=== PATIENT | female | born 1995 | race African-American/Black ===

== ENCOUNTER 2018-06-15 11:35 | Inpatient (IN) | payer OTHER ==
[2018-06-15] MEDS ORDERED: METHYLERGONOVINE 0.2 MG INJ IM (13:00)
[2018-06-15] MEDS ORDERED: MISOPROSTOL 200 MCG TAB PR (13:00)
[2018-06-15] MEDS ORDERED: LIDOCAINE 1% (MPF) 30 ML INJ INJ (13:00)
[2018-06-15] MEDS ORDERED: CARBOPROST 250 MCG INJ IM (13:00)
[2018-06-15] MEDS ORDERED: OXYTOCIN 30 UNITS/LR 500 ML IV ×2 (13:00)
[2018-06-15] MEDS ORDERED: BUTORPHANOL 1 MG INJ IV (13:00)
[2018-06-15 13:35] LABS: ADD MAN DIFF? NO
[2018-06-15 13:44] LABS: WHITE BLOOD COUNT 8.5 10^3/ul (4.8-10.8)
[2018-06-15 13:44] LABS: BASOPHILS % 0.4 % (0.0-2.0); EOSINOPHILS # 0.1 10^3/ul (0.0-0.5); EOSINOPHILS % 1.1 % (0.0-7.0); HEMATOCRIT 37.1 % (37.0-47.0); HEMOGLOBIN 12.7 g/dl (12.0-16.0); LYMPHOCYTES # 2.3 10^3/ul (0.8-2.9); LYMPHOCYTES % 26.9 % (15.0-51.0); MEAN CORPUSCULAR HGB CONC 34.2 g/dl (32.0-37.0); MEAN CORPUSCULAR VOLUME 81.7 fl (82.0-101.0); MEAN PLATELET VOLUME 9.8 fl (7.4-10.4); MONOCYTE # 0.8 10^3/ul (0.3-0.9); MONOCYTES % 9.3 % (0.0-11.0); NEUTROPHIL # 5.3 10^3/ul (1.6-7.5); NEUTROPHILS % 62.1 % (39.0-77.0); PLATELET COUNT 297 10^3/UL (140-415); RED BLOOD COUNT 4.54 10^6/ul (4.20-5.40); RED CELL DISTRIBUTION WIDTH 12.8 % (11.5-14.5)
[2018-06-15 14:03] LABS: INR 0.85; PROTIME 11.7 Sec (11.9-14.9); PT RATIO 0.9
[2018-06-15 14:04] LABS: PARTIAL THROMBOPLASTIN TIME 31.1 Sec (23.0-35.0)
[2018-06-15] MEDS: MISOPROSTOL 50 MCG CAPSULE VAG (16:28)
[2018-06-15 16:36] LABS: AMPHETAMINE/METHAMPHETAMINE Negative (NEGATIVE); BARBITURATES Negative (NEGATIVE); BENZODIAZEPINES Negative (NEGATIVE); CANNABINOIDS Positive (NEGATIVE); COCAINE Negative (NEGATIVE); OPIATES Negative (NEGATIVE)
[2018-06-15] MEDS: LACTATED RINGER'S 1,000 ML IV ×2 (16:36→20:57)
[2018-06-15 18:33] LABS: HEMOGLOBIN A1C 5.3 % (0-5.9)
[2018-06-15 18:41] LABS: GLUCOSE 88 mg/dl (70-220)
[2018-06-15 18:57] LABS: FREE T4 (FREE THYROXINE) 0.98 ng/dl (0.79-2.35)
[2018-06-15 20:31] LABS: RAPID PLASMA REAGIN REACTIVE (NR)
[2018-06-15] MEDS: MISOPROSTOL 100 MCG TAB VAG (21:24)
[2018-06-16] MEDS: MISOPROSTOL 100 MCG TAB VAG ×4 (03:37→16:21)
[2018-06-16] MEDS: LACTATED RINGER'S 1,000 ML IV ×3 (05:48→22:20)
[2018-06-16] MEDS: MISOPROSTOL 200 MCG TAB VAG (20:44)
[2018-06-17] MEDS: MISOPROSTOL 200 MCG TAB VAG (03:33)
[2018-06-17] MEDS: BUTORPHANOL 2 MG INJ IV ×2 (10:41→18:05)
[2018-06-17] MEDS: DINOPROSTONE 20 MG VAG SUPP VAG ×2 (12:29→18:06)
[2018-06-17] MEDS: LACTATED RINGER'S 1,000 ML IV (18:09)
[2018-06-17] MEDS: MISOPROSTOL 200 MCG TAB SL (23:53)
[2018-06-18] MEDS: IBUPROFEN 600 MG TAB PO (00:22)
[2018-06-18] MEDS: LACTATED RINGER'S 1,000 ML IV (00:22)
[2018-06-18] MEDS ORDERED: IBUPROFEN 600 MG TAB PO ×2 (00:30→18:30)
[2018-06-18] MEDS: MISOPROSTOL 200 MCG TAB SL ×2 (03:02→06:15)
[2018-06-18] MEDS: BUTORPHANOL 2 MG INJ IV (03:18)
[2018-06-18] MEDS: OXYTOCIN 30 UNITS/LR 500 ML IV (08:17)
[2018-06-18] MEDS ORDERED: MIDAZOLAM 1 MG/ML 2 ML INJ ×2 (09:14)
[2018-06-18] MEDS ORDERED: CEFAZOLIN 1 GM INJ (09:26)
[2018-06-18] MEDS ORDERED: HYDROmorphONE 1 MG/5 ML IV SYRINGE IV ×2 (09:30)
[2018-06-18] MEDS: OXYCODONE/ASPIRIN (4.88/325) TAB PO (13:54)
[2018-06-18 17:21] LABS: ADD MAN DIFF? NO
[2018-06-18 17:24] LABS: WHITE BLOOD COUNT 10.8 10^3/ul (4.8-10.8)
[2018-06-18 17:24] LABS: BASOPHILS % 0.3 % (0.0-2.0); EOSINOPHILS # 0.1 10^3/ul (0.0-0.5); HEMOGLOBIN 11.3 g/dl (12.0-16.0); LYMPHOCYTES % 28.1 % (15.0-51.0); MEAN CORPUSCULAR HEMOGLOBIN 27.8 pg (29.0-33.0); MEAN CORPUSCULAR HGB CONC 33.2 g/dl (32.0-37.0); MEAN CORPUSCULAR VOLUME 83.7 fl (82.0-101.0); MEAN PLATELET VOLUME 9.3 fl (7.4-10.4); MONOCYTES % 9.1 % (0.0-11.0); NEUTROPHIL # 6.6 10^3/ul (1.6-7.5); NEUTROPHILS % 61.2 % (39.0-77.0); PLATELET COUNT 265 10^3/UL (140-415); RED BLOOD COUNT 4.06 10^6/ul (4.20-5.40); RED CELL DISTRIBUTION WIDTH 12.6 % (11.5-14.5)
[2018-06-18] MEDS ORDERED: OXYTOCIN 30 UNITS/LR 500 ML IV ×2 (18:14→18:30)
[2018-06-18] MEDS ORDERED: DIPHENHYDRAMINE 25 MG CAP PO (18:30)
[2018-06-18] MEDS ORDERED: MISOPROSTOL 200 MCG TAB PR (18:30)
[2018-06-18] MEDS ORDERED: SENNA/DOCUSATE NA (8.6MG/50MG) TAB PO ×2 (18:30→21:00)
[2018-06-18] MEDS ORDERED: NACL 0.9% 3 ML SYG IV (18:30)
[2018-06-18] MEDS ORDERED: OXYCODONE/ASPIRIN (4.88/325) TAB PO (18:30)
[2018-06-18] MEDS ORDERED: METHYLERGONOVINE 0.2 MG INJ IM (18:30)
[2018-06-18] MEDS ORDERED: ZOLPIDEM 5 MG TAB PO (18:30)
[2018-06-18] MEDS ORDERED: DIPHENHYDRAMINE 50 MG INJ IV (18:30)
[2018-06-18] MEDS ORDERED: WITCH HAZEL/GLYCERIN PAD PR (18:30)
[2018-06-18] MEDS ORDERED: ONDANSETRON 4 MG INJ IV (18:30)
[2018-06-18] MEDS ORDERED: CARBOPROST 250 MCG INJ IM (18:30)
[2018-06-19 21:46] LABS: CARDIOLIPIN AB - IGA <11 APL; CARDIOLIPIN AB - IGG <14 GPL; CARDIOLIPIN AB - IGM <12 MPL
[2018-06-20] MEDS ORDERED: DIPHTH/TET/ACEL PERTUSS (ADULT) 0.5 ML VIAL IM* (09:00)
[2018-06-21 17:31] LABS: FLUORESCENT TREPONEMAL AB NON-REACTIVE (NON-REACTIVE)
== END 2018-06-18 18:25 | disposition home or self-care (01) | DRG 779 ==
LOC: L-D 11:35
PROVIDERS: Obstetrics & Gynecology
PROC: 3E0P7VZ Introduction of Hormone into Female Reproductive, Via Natural or Artificial Opening (ICD-10-PCS; 2018-06-15)
PROC: 10D17Z9 Manual Extraction of Products of Conception, Retained, Via Natural or Artificial Opening (ICD-10-PCS; principal; 2018-06-18)
DX: O02.1 Missed abortion (principal)
CPT/HCPCS: 80307; 82947; 83036; 84439; 84443; 85025; 85610; 85613; 85730; 86147; 86592; 86850; 86900; 86901; 88307